=== PATIENT | male | born 1960 | race Two or more races ===

== ENCOUNTER 2025-01-02 18:17 | Emergency (ER) | payer OTHER ==
[~2025-01-02] VITALS: Ht 193 cm; Wt 95.3 kg
[2025-01-02] MEDS ORDERED: MORPHINE SULFATE INJ 4 MG/ML DISP.SYRIN ONE (18:34)
[2025-01-02] MEDS ORDERED: ONDANSETRON HCL/PF 4 MG/2 ML VIAL ONE (18:34)
[2025-01-02 18:49] LABS: BASOPHILS # (AUTO) 0.1 K/uL (0.0-0.2); BASOPHILS % (AUTO) 0.7 % (0.0-2.0); EOSINOPHILS # (AUTO) 0.4 K/uL (0.0-0.7); EOSINOPHILS % (AUTO) 4.1 % (0.0-6.0); HEMATOCRIT 45 % (39-51); HEMOGLOBIN 15.5 g/dL (13.5-17.5); LYMPHOCYTES % (AUTO) 33.8 % (20.0-44.0); MEAN CORPUSCULAR HEMOGLOBIN 31 PG (26.0-33.0); MEAN CORPUSCULAR HGB CONC 35 g/dl (31.0-36.0); MEAN CORPUSCULAR VOLUME 91 fL (80-96); MONOCYTES # (AUTO) 0.6 K/uL (0.1-1.30); MONOCYTES % (AUTO) 7.2 % (2.0-12.0); NEUTROPHILS # (AUTO) 4.8 K/uL (1.8-8.9); NEUTROPHILS % (AUTO) 54.2 % (43.0-81.0); PLATELET COUNT (AUTO) 259 K/uL (150-450); RED BLOOD CELL COUNT(AUTO) 4.94 MIL/uL (4.5-6.0); RED CELL DISTRIBUTION WIDTH 12.9 % (11.5-15.0); WHITE BLOOD COUNT (AUTO) 8.9 K/uL (4.3-11.0)
[2025-01-02] MEDS: IV NS 0.9% 1,000 ML BAG IV ONE (18:53)
[2025-01-02] MEDS: ONDANSETRON HCL/PF 4 MG/2 ML VIAL IVP ONE (18:54)
[2025-01-02] MEDS: MORPHINE SULFATE INJ 2 MG/ML DISP.SYRIN IV ONE (18:54)
[2025-01-02 19:03] LABS: CREATININE 2.2 mg/dL (0.6-1.3)
[2025-01-02 19:07] LABS: CALCIUM, SERUM 8.2 mg/dL (8.5-10.1)
[2025-01-02] MEDS ORDERED: PROPOFOL 20 ML IV ONE (19:11)
[2025-01-02 19:16] LABS: INR 0.92 (0.91-1.10); PARTIAL THROMBOPLASTIN TIME 22.8 SEC (24.3-34.3); PROTHROMBIN TIME 9.8 SECS (9.2-11.1)
[2025-01-02] MEDS: PHENYLEPHRINE 10 MG/ML VIAL IJ ONE (19:42)
[2025-01-02] MEDS: PROPOFOL 200 MG/20 ML VIAL IV ONE (19:42)
[2025-01-02 20:41] VITALS: BP 108/76; TEMP 98.3; O2SAT 96
== END 2025-01-02 20:41 | disposition home or self-care (01) ==
LOC: ER 18:20
DX: N48.30 Priapism, unspecified (principal); E11.65 Type 2 diabetes mellitus with hyperglycemia; E78.5 Hyperlipidemia, unspecified; I10 Essential (primary) hypertension
CPT/HCPCS: 36415; 54220; 80048; 85025; 85730; 93980; 96361; 96374; 96375; 99152; 99285; J2270; J2405; J2704; J7030; G0500